=== PATIENT | female | born 1950 | race American Indian/Alaskan Native ===

== ENCOUNTER 2017-06-04 17:07 | Emergency (ER) | payer BC, MEDICARE ==
[2017-06-04 17:38] VITALS: BP 171/106
--- NOTE | 2017-06-04 21:49 | Emergency Department Report ---
- General Chief Complaint: Laceration/Recheck/Suture Stated Complaint: FINGER LACERATION Time Seen by Provider: 06/04/17 21:17 Source: patient Mode of arrival: Ambulatory Limitations: No Limitations - History of Present Illness Initial Comments: 66-year-old -[place] female comes in for a wound check. Patient reports 3 days ago she had laceration repaired to her left fourth finger. Patient comes in feeling that the fingers gotten worse. Patient reports that she's taken her antibiotics as prescribed. Patient denies any fever or chills no nausea no vomiting. Patient has not changed the bandage since she's had the repair. Hand is still dirty with dried blood. - Related Data Home Medications Medication Instructions Recorded Confirmed Last Taken amLODIPine [Norvasc] 0 mg PO DAILY 12/24/12 12/24/12 Unknown Previous Rx's Medication Instructions Recorded Last Taken Type Aspirin [Aspirin TAB] 81 mg PO QDAY #30 tablet 12/27/12 Unknown Rx Hydrocodone Bit/Acetaminophen 1 each PO TID PRN #20 tablet 12/27/12 Unknown Rx [Lortab 5-500 Tablet] Lisinopril [Zestril TAB] 40 mg PO QDAY #30 tablet 12/27/12 Unknown Rx Metoprolol [Lopressor TAB] 50 mg PO BID #60 tablet 12/27/12 Unknown Rx hydrALAZINE [Apresoline TAB] 75 mg PO Q8HR #90 tablet 12/27/12 Unknown Rx Allergies Allergy/AdvReac Type Severity Reaction Status Date / Time No Known Allergies Allergy Unverified 12/24/12 02:46 ED Review of Systems ROS: Stated complaint: FINGER LACERATION Other details as noted in HPI Constitutional: denies: chills, fever Eyes: denies: eye pain, eye discharge, vision change ENT: denies: ear pain, throat pain Respiratory: denies: cough, shortness of breath, wheezing Cardiovascular: denies: chest pain, palpitations Endocrine: no symptoms reported Gastrointestinal: denies: abdominal pain, nausea, diarrhea Genitourinary: denies: urgency, dysuria, discharge Musculoskeletal: denies: back pain, joint swelling, arthralgia Skin: other (bandages stuck to the sutures.). denies: rash, lesions Neurological: denies: headache, weakness, paresthesias Psychiatric: denies: anxiety, depression Hematological/Lymphatic: denies: easy bleeding, easy bruising ED Past Medical Hx - Past Medical History Hx Hypertension: Yes Hx Congestive Heart Failure: No Hx Diabetes: No Hx Headaches / Migraines: No Hx Asthma: No Hx COPD: No - Surgical History Past Surgical History?: No - Social History Smoking Status: Never Smoker Substance Use Type: None - Medications Home Medications: Home Medications Medication Instructions Recorded Confirmed Last Taken Type amLODIPine [Norvasc] 0 mg PO DAILY 12/24/12 12/24/12 Unknown History Aspirin [Aspirin TAB] 81 mg PO QDAY #30 tablet 12/27/12 Unknown Rx Hydrocodone Bit/Acetaminophen 1 each PO TID PRN #20 tablet 12/27/12 Unknown Rx [Lortab 5-500 Tablet] Lisinopril [Zestril TAB] 40 mg PO QDAY #30 tablet 12/27/12 Unknown Rx Metoprolol [Lopressor TAB] 50 mg PO BID #60 tablet 12/27/12 Unknown Rx hydrALAZINE [Apresoline TAB] 75 mg PO Q8HR #90 tablet 12/27/12 Unknown Rx ED Physical Exam - General Limitations: No Limitations General appearance: alert, in no apparent distress - Head Head exam: Present: atraumatic, normocephalic - Eye Eye exam: Present: normal appearance - ENT ENT exam: Present: mucous membranes moist - Neck Neck exam: Present: normal inspection - Respiratory Respiratory exam: Present: normal lung sounds bilaterally. Absent: respiratory distress - Cardiovascular Cardiovascular Exam: Present: regular rate, normal rhythm. Absent: systolic murmur, diastolic murmur, rubs, gallop - GI/Abdominal GI/Abdominal exam: Present: soft, normal bowel sounds - Extremities Exam Extremities exam: Present: normal inspection - Back Exam Back exam: Present: normal inspection - Neurological Exam Neurological exam: Present: alert, oriented X3 - Psychiatric Psychiatric exam: Present: normal affect, normal mood - Skin Skin exam: Present: warm, dry, intact, normal color, other (sutures appear to be intact there is non-erythematous no edematous no purulent discharge noted). Absent: rash, erythema, ecchymosis ED Course Vital Signs 06/04/17 17:33 Temperature 97.7 F Pulse Rate 90 Respiratory 20 Rate Blood Pressure 171/106 O2 Sat by Pulse 98 Oximetry ED Medical Decision Making - Medical Decision Making Patient has been evaluated by this provider in fast track. Nurses tech has had patient finger soaking in Betadine normal saline solution. Provider comes in to remove gauze from sutures. Provider used forceps. Patient tolerated well. Discussed the patient to use a non-adherent dressing to her finger. Discussed with patient to continue with antibiotics and return back in 7 days to have sutures removed. Patient verbalized understanding. Critical care attestation.: If time is entered above; I have spent that time in minutes in the direct care of this critically ill patient, excluding procedure time. ED Disposition Clinical Impression: Visit for wound check Disposition: [id number] TO HOME OR SELFCARE Is pt being admited?: No Does the pt Need Aspirin: No Condition: Stable Additional Instructions: Continue with antibiotics and pain medication as prescribed during her last visit. Please use nonadherent dressing to your wound. Clean and change bandage daily. Return in 7 days to have sutures removed. Referrals: PRIMARY CARE [Primary Care Provider] - 3-5 Days Forms: Work/School Release Form(ED)
== END 2017-06-04 21:58 | disposition home or self-care (01) ==
LOC: ED 17:07
DX: Z48.00 Encounter for change or removal of nonsurgical wound dressing (principal); I10 Essential (primary) hypertension
CPT/HCPCS: 99282